=== PATIENT | male | born 1965 | race Hispanic/Latino ===

== ENCOUNTER → 2018-02-11 | Outpatient (CLI) | payer MEDICARE ==
[~2018-02-11] MED LIST: AMLO5TAB7 PO; ASPI-1005 PO; BRIM5DRO OP; CLOP75TA32 PO; CORTSOL AD; DOCU100C33 PO; GABA-531 PO; INSU100V12 SQ; IRON18TA PO; LINA5TAB PO; LISI40TA4 PO; METO50TA18 PO; PHEN95TA14 PO; TAMS0.4C32 PO; TIZA2TAB4 PO
== END | disposition home or self-care (01) ==
LOC: RAH 12:31
PROVIDERS: ATTEND Orthopaedic Surgery
DX: M19.011 Primary osteoarthritis, right shoulder (principal)
CPT/HCPCS: 73200

== ENCOUNTER → 2024-06-22 | Outpatient (CLI) | payer MEDICARE ==
[~2024-06-22] MED LIST changes: +AMLO-257 PO; -AMLO5TAB7 PO; +IOHEXOL 350 MG/ML 100ML INFUS..BTL IV ONE; -LISI40TA4 PO; +LISI40TA9 PO; +TIZA-194 PO; -TIZA2TAB4 PO
--- NOTE | 2024-06-22 16:51 | HMCIMG ---
CT CARDIAC ANGIO W/CONT. CCTA HISTORY: Chest pain COMPARISON: None TECHNIQUE: Multiple sequential axial images of the chest were obtained along with the CT angiogram of the chest study. Patient was given 100 cc of Omnipaque through intravenous route. FINDINGS: There is no evidence of pulmonary nodule or parenchymal disease. No pleural effusion or pericardial effusion is seen. There is no evidence of pneumothorax. There are normal size mediastinal and hilar lymph nodes. The heart is borderline enlarged. Degenerative changes of the thoracolumbar spine are present. IMPRESSION: 1. No evidence of pulmonary nodule or effusion is seen. Please see CT angiogram report of coronary arteries.
== END | disposition home or self-care (01) ==
LOC: RAH 07:33
PROVIDERS: ATTEND Student in an Organized Health Care Education/Training Program
DX: R07.9 Chest pain, unspecified (principal); R79.89 Other specified abnormal findings of blood chemistry; M47.815 Spondylosis without myelopathy or radiculopathy, thoracolumbar region
CPT/HCPCS: 75574; Q9967

== ENCOUNTER 2024-08-31 06:50 | Day surgery (SDC) | payer MEDICARE, MEDICAID ==
[2024-08-26 11:01] VITALS: BP 138/58; PULSE 58; RESP 18; TEMP 97.5
[2024-08-26 11:04] LABS: BASOPHILS # (AUTO) 0.08 K/uL (0.00-0.20); BASOPHILS % (AUTO) 0.7 % (0.0-5.0); EOSINOPHILS # (AUTO) 0.17 K/uL (0.00-0.70); EOSINOPHILS % (AUTO) 1.4 % (0.0-8.0); HEMATOCRIT 37.9 % (42-54); IMMATURE GRANULOCYTE ABSOLUTE 0.05 K/uL (0-1); LYMPHOCYTES # (AUTO) 2.9 K/uL (1.0-4.8); LYMPHOCYTES % (AUTO) 23.5 % (21.0-51.0); MEAN CORPUSCULAR HEMOGLOBIN 28.6 pg (27.0-33.0); MEAN CORPUSCULAR HGB CONC 32.7 g/dL (32.0-36.0); MEAN CORPUSCULAR VOLUME 87.3 fL (79-99); MONOCYTES # (AUTO) 1.1 K/uL (0.1-1.0); NEUTROPHILS # (AUTO) 7.9 K/uL (1.8-7.7); PLATELET COUNT (AUTO) 179 K/uL (130-400); RED BLOOD CELL COUNT(AUTO) 4.34 MIL/uL (4.50-6.20); RED CELL DISTRIBUTION WIDTH 15.1 % (11.0-15.5); WHITE BLOOD COUNT (AUTO) 12.1 K/uL (4.8-10.8)
[2024-08-26 11:17] LABS: ALBUMIN 3.3 g/dL (3.5-5.0); BILIRUBIN,TOTAL 0.5 mg/dL (0.2-1.0); TOTAL PROTEIN, SERUM 7.6 g/dL (6.0-8.3)
--- NOTE | 2024-08-26 11:23 | EKG ---
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
[2024-08-26 11:25] LABS: B-TYPE NATRIURETIC PEPTIDE 442 pg/mL (0-100)
[2024-08-26 11:29] LABS: INR 1.13 (0.85-1.15); PROTHROMBIN TIME 11.8 SEC (9.6-11.6)
[2024-08-26 11:31] LABS: PARTIAL THROMBOPLASTIN TIME 38.4 SEC (26.3-35.5)
[2024-08-26 11:50] LABS: APPEARANCE,URINE CLOUDY (CLEAR); COLOR,URINE Light-Yellow (YELLOW)
[2024-08-26 11:51] LABS: ADD UA MICROSCOPIC YES; BILIRUBIN,URINE NEGATIVE (NEGATIVE); GLUCOSE, URINE (UA) NEGATIVE (NEGATIVE); KETONES,URINE NEGATIVE (NEGATIVE); LEUKOCYTE ESTERASE ,URINE LARGE Leu/uL (NEGATIVE); NITRATE,URINE NEGATIVE (NEGATIVE); OCCULT BLOOD,URINE LARGE (NEGATIVE); PROTEIN,URINE 300 mg/dL (NEGATIVE); UROBILINOGEN,URINE 0.2 mg/dL (0.2-1.0)
[2024-08-26 11:55] LABS: BACTERIA,URINE Many /HPF (None Seen); SQUAMOUS EPITHELIAL CELL,UR Rare /HPF (0-2); WBC,URINE TNTC /HPF (0-1)
--- NOTE | 2024-08-26 12:44 | HMCIMG ---
Exam Type: CHEST 1VW Clinical Information: PRE OP Comparison: None Findings: The lungs are clear of infiltrates. The heart is normal in size. The bony and soft tissue structures of the chest are unremarkable. Impression: Clear lungs.
--- NOTE | 2024-08-27 11:54 | NUR ---
RE: LABS REPORTED UA/PRELIMINARY URINE CX RESULTS AND WBC 12.[address] RICK PEREIRA, NO NEW ORDERS RECEIVED. OK TO PROCEED.
[~2024-08-31] VITALS: Ht 160 cm; Wt 71.4 kg
[2024-08-31] VITALS (11 sets, daily range): BP systolic 63–176; BP diastolic 30–75; PULSE 57–66; RESP 9–18; TEMP 97.9–98.1
[~2024-08-31 06:50] MED LIST changes: +ACET-2743 PO; +ASCO100031 PO; +CALCIUM PO; -CLOP75TA32 PO; -CORTSOL AD; +EZET10TA48 PO; +FERR-82 PO; +FLUT16H NS; +FOLI0.8T22 PO; +GABA-529 PO; -GABA-531 PO; -INSU100V12 SQ; -IOHEXOL 350 MG/ML 100ML INFUS..BTL IV ONE; -IRON18TA PO; -LINA5TAB PO; -LISI40TA9 PO; +METH1TAB PO; +METO-391 PO; -METO50TA18 PO; +PHARMACY COMMUNICATION MISC SCH; -PHEN95TA14 PO; +SEVE0.8P PO; +XARELTO PO
[2024-08-31] MEDS ORDERED: GENTAmicin SULFate 80 MG/2 ML VIAL IV SCH ×2 (08:00)
[2024-08-31] MEDS: 0.9%NACL 1000ML 1,000 ML IV SCH (08:14)
[2024-08-31] MEDS ORDERED: GENTAmicin 80 MG/NS 100 ML PB 100 ML IV ONE (08:15)
[2024-08-31] MEDS: GENTAmicin 80 MG/NS 100 ML PB 100 ML IV ONE (08:19)
[2024-08-31] MEDS ORDERED: IOHEXOL 350 MG/ML 100ML INFUS..BTL IV ONE (09:30)
[2024-08-31] MEDS ORDERED: HEParin 10,000 UNIT/10ML (1,000 UNIT/ML) VIAL ONE (09:31)
[2024-08-31] MEDS ORDERED: NITROGLYCERIN 50MG VIAL ONE (09:31)
[2024-08-31] MEDS ORDERED: HEParin-NS 1,000 UNIT/500 ML 1,000 ML IV ONE (09:31)
[2024-08-31] MEDS ORDERED: VERAPAMIL HCL 2.5 MG/ML VIAL ONE (09:33)
[2024-08-31] MEDS ORDERED: LIDOCAINE HCL 400MG/20ML VIAL ONE (09:33)
[2024-08-31] MEDS ORDERED: FENTanyl CITRate PF 50 MCG/1 ML 2ML VIAL ONE (09:48)
[2024-08-31] MEDS ORDERED: MIDAZOLAM HCL 1 MG/ML 2ML VIAL ONE (09:48)
[2024-08-31] MEDS ORDERED: hydrALAZine 20MG/ML VIAL ONE (10:18)
--- NOTE | 2024-08-31 10:55 | PRN ---
PROCEDURE REPORT DATE OF PROCEDURE: Aug 31, 2024 AUTO GLASS WORKER: [Rick díaz MD ] PROCEDURE PERFORMED: Conscious sedation Ultrasound guided right femoral artery access Selective left coronary artery angiogram Selective right coronary artery angiogram Left heart catheterization Angio-Seal of the right common femoral artery INDICATION: Abnormal coronary CTA DESCRIPTION OF PROCEDURE: After informed consent was obtained, the patient was prepped and draped in the usual sterile fashion. Due to patient's significant right upper extremity contractures with aborted that radial approach. A 6 [place]ian arterial sheath was inserted in the right femoral artery using ultrasound guidance with first pass wall puncture. The arterial sheath was aspirated and flushed. A 6 [place] JL 4 was then advanced to the ascending aorta over an exchange length J-tip guidewire, was aspirated and flushed, and was used for selective coronary angiograms in multiple obliquities. A JR-4 was advanced in a similar fashion to the ascending aorta over the J-tipped guidewire and was used for selective right coronary angiograms in multiple oblique views with findings as outlined below. The JR-4 catheter advanced into the LV and pressures were obtained with a pull- back across the aortic valve. A limited right iliofemoral angiography was performed to delineate anatomy and then we deployed a six [place] Angio-Seal of the right common femoral artery a pain hemostasis. Patient tolerated procedure well with no postprocedure complication was transferred to medical laboratory technician holding stable condition. FLUOROSCOPY TIME: 5.8 min LEFT HEART HEMODYNAMICS: LVEDP 16 mm Hg and no gradient Ao CORONARY ANGIOGRAM: LEFT MAIN: Patent and 0% stenosis. Gives rise to LCx and LAD. LEFT ANTERIOR DESCENDING: Large vessel giving rise to two Diagonal branches. Heavily and diffusely calcified with 80 85% proximal and 80-85% mid stenosis. D1 is patent. Lad provides robust collaterals to the RCA. LEFT CIRCUMFLEX: Large and gives rise to two OM branches. Calcified with 30-40% mid stenosis. OM2 are patent RIGHT CORONARY ARTERY: Large, dominant vessel giving rise to PDA and PL branches. 100% mid COLOR FINISHER. Distal PDA and PLB fill via [id number] collaterals HEMOSTASIS: Angio-Seal of the right common femoral artery INTERVENTIONS: None. COMPLICATIONS: None FINDINGS: Severe two-vessel CAD ESTIMATED BLOOD LOSS: 5 cc RECOMMENDATIONS/INSTRUCTIONS: Aggressive risk factor modification. Consult CV surgery for CABG evaluation versus high-risk PCI Bedrest for 4 hours with groin precautions Follow up with Dr. Josef díaz in 1-2 weeks post discharge CONTRAST DELIVERED TO PATIENT (mL): 80cc RICK Davis MD, MD Aug 31, 2024 10:55
[2024-08-31] MEDS ORDERED: GLUCAGON 1MG KIT 1 MG ML IM PRN (11:00)
[2024-08-31] MEDS ORDERED: 0.9%NACL 1000ML 1,000 ML IV SCH (11:00)
[2024-08-31] MEDS ORDERED: DEXTROSE 50%-WATER 50 ML DISP.SYRIN IV PRN (11:00)
--- NOTE | 2024-08-31 13:34 | NUR ---
report: hand-off communication given to chay willams rn
--- NOTE | 2024-08-31 14:36 | NUR ---
Full and complete discharge instructions given to Patient and Family both verbally and in writing. Explained Angiogram procedure precautions and follow up. Right groin site clean dry and intact. No evidence of bleeding, bruising or hematoma. Pedal pulses intact to BLE's. All questions answered. PIV removed with catheter tip intact. at bedside appearing supportive. W/C to POV with to home.
== END 2024-08-31 14:40 | disposition home or self-care (01) ==
LOC: DAH 06:50
PROVIDERS: ATTEND Student in an Organized Health Care Education/Training Program
DX: R93.1 Abnormal findings on diagnostic imaging of heart and coronary circulation (principal); I25.118 Atherosclerotic heart disease of native coronary artery with other forms of angina pectoris; I25.82 Chronic total occlusion of coronary artery; I12.0 Hypertensive chronic kidney disease with stage 5 chronic kidney disease or end stage renal disease; I87.2 Venous insufficiency (chronic) (peripheral); R79.89 Other specified abnormal findings of blood chemistry; E11.22 Type 2 diabetes mellitus with diabetic chronic kidney disease; E11.51 Type 2 diabetes mellitus with diabetic peripheral angiopathy without gangrene; R07.9 Chest pain, unspecified; E78.5 Hyperlipidemia, unspecified; N18.6 End stage renal disease; Z86.73 Personal history of transient ischemic attack (TIA), and cerebral infarction without residual deficits; Z98.890 Other specified postprocedural states; Z79.01 Long term (current) use of anticoagulants; Z79.82 Long term (current) use of aspirin; Z79.899 Other long term (current) drug therapy
CPT/HCPCS: 80053; 83880; 85025; 85610; 85730; 87086 ×2; 87186; 81001; 36415; 71045; 93005; 93458; 82948 ×2; 99156; 99157 ×2; C1894 ×2; C1760; J3010; J3490 ×2; J0360; J2250; J1644; J1580; Q9967; A4215; A4222; A4221; A4663; A4216; A4606; Q9965 ×2; A4223 ×3